=== PATIENT | male | born 1970 | race Caucasian/White ===

== ENCOUNTER 2023-09-29 19:53 | Emergency (ER) | payer SELFPAY ==
[2023-09-29] MEDS ORDERED: Lidocaine 1% PF 5 ML VIAL ONE (20:08)
[2023-09-29] MEDS ORDERED: Bacitracin 1 PK ONE (20:36)
[2023-09-29] MEDS ORDERED: Cephalexin 500 MG CAP ONE (20:36)
[2023-09-29] MEDS ORDERED: Boostrix 0.5 ML (Tdap) VIAL (>/=7 yrs of age) ONE (20:37)
== END 2023-09-29 21:25 | disposition home or self-care (01) ==
LOC: MADERS 19:53
DX: S61.012A Laceration without foreign body of left thumb without damage to nail, initial encounter (principal); I10 Essential (primary) hypertension; F17.210 Nicotine dependence, cigarettes, uncomplicated; W26.0XXA Contact with knife, initial encounter
CPT/HCPCS: 12002; 90471; 90715